=== PATIENT | female | born 2000 | race African-American/Black ===

== ENCOUNTER 2019-08-03 05:40 | Inpatient (IN) ==
[2019-08-03] MEDS ORDERED: BUTORPHANOL 2 MG/ML VIAL IV PRN (06:03)
[2019-08-03] MEDS ORDERED: ONDANSETRON 4 MG/2 ML VIAL IV PRN (06:03)
[2019-08-03] MEDS ORDERED: AMPICILLIN INJ 2,000 MG in SODIUM CHLORIDE 0.9% 100 ML IV ONE (06:04)
[2019-08-03] MEDS: LACTATED RINGERS 1,000 ML IV SCH ×2 (06:15→17:46)
[2019-08-03 07:36] LABS: Basophils % 0.4 % (0.0-0.8); Eosinophils # 0.1 10*3/uL (0.0-0.87); Eosinophils % 1.7 % (0.00-10.9); Hematocrit 31.1 VOL% (35.7-47.0); Hemoglobin 9.9 GM/DL (12.0-16.0); Immature Granulocytes % 1.3 %; Lymphocytes # 1.4 10*3/uL (1.4-4.0); Lymphocytes % 19.1 % (21.3-54.2); Mean Corpuscular HGB Conc 31.8 GM/DL (32-36); Mean Corpuscular Volume 84.1 FL (87-102); Mean Platelet Volume 12.4 FL (9.6-12.0); Monocytes % 12.1 % (1.7-12.7); Neutrophils % 65.4 % (38.7-73.9); Platelet Count 174 T/CUMM (130-400); Red Cell Distribution Width 16.3 % (9.3-17.3); White Blood Count 7.6 T/CUMM (4-12)
[2019-08-03] MEDS: AMPICILLIN INJ 1,000 MG in SODIUM CHLORIDE 0.9% 100 ML IV SCH ×4 (10:51→22:39)
[2019-08-03] MEDS: FLUoxetine 20 MG CAPSULE PO SCH (11:27)
[2019-08-03] MEDS ORDERED: ePHEDrine 50 MG/ML AMP IV PRN (21:51)
[2019-08-03] MEDS ORDERED: FAMOTIDINE 20 MG/2 ML VIAL IV ONE (21:51)
[2019-08-03] MEDS ORDERED: NALOXONE 0.4 MG/ML VIAL IV PRN (21:51)
[2019-08-03] MEDS ORDERED: CITRIC ACID/SODIUM CITRATE 30 ML UDCUP PO ONE (21:51)
[2019-08-03] MEDS ORDERED: CITRIC ACID/SODIUM CITRATE 30 ML UDCUP ONE (21:58)
[2019-08-03] MEDS ORDERED: ePHEDrine 50 MG/ML AMP ONE (21:58)
[2019-08-03] MEDS ORDERED: fentaNYL 2 MCG/ROPIV 0.2% EPID 100 ML EPIDURAL ONE (21:58)
[2019-08-03] MEDS ORDERED: fentaNYL 2 MCG/ROPIV 0.2% EPID 100 ML EPIDURAL SCH (22:00)
[2019-08-04] MEDS ORDERED: OXYTOCIN/LR 20 UNIT/1,000 ML BAG IV SCH (01:00)
[2019-08-04] MEDS: AMPICILLIN INJ 1,000 MG in SODIUM CHLORIDE 0.9% 100 ML IV SCH ×3 (02:30→10:37)
[2019-08-04] MEDS: FLUoxetine 20 MG CAPSULE PO SCH (10:38)
[2019-08-04] MEDS ORDERED: miSOPROStoL 200 MCG TABLET ONE (11:55)
[2019-08-04] MEDS ORDERED: TRANEXAMIC ACID 1,000 MG/10 ML VIAL ONE (11:56)
[2019-08-04] MEDS ORDERED: METHYLERGONOVINE 0.2 MG/1 ML AMP ONE (11:56)
[2019-08-04] MEDS ORDERED: CARBOPROST TROMETHAMINE 250 MCG/ML AMP IM ONE (11:56)
[2019-08-04] MEDS ORDERED: LIDOCAINE 1% 50 ML VIAL ONE (11:57)
[2019-08-04] MEDS ORDERED: SODIUM CHLORIDE 0.9% 0 ML IV ONE (11:57)
[2019-08-04] MEDS ORDERED: METHYLERGONOVINE 0.2 MG/1 ML AMP IM ONE (13:30)
[2019-08-04] MEDS ORDERED: ACETAMINOPHEN 325 MG TABLET PO PRN (13:46)
[2019-08-04] MEDS ORDERED: BISACODYL 10 MG SUPP RECTAL PRN (13:46)
[2019-08-04] MEDS ORDERED: HYDROCORTISONE 2.5% RECTAL CREAM 30 GM TUBE TOP PRN (13:46)
[2019-08-04] MEDS ORDERED: ONDANSETRON 4 MG/2 ML VIAL IV PRN (13:46)
[2019-08-04] MEDS ORDERED: DIPH/TET/ACEL PERT BOOSTER VACCINE 0.5 ML VIAL IM ONE (13:46)
[2019-08-04] MEDS ORDERED: oxyCODONE/ACETAMINOPHEN 5-325 MG TABLET PO PRN (13:46)
[2019-08-04] MEDS ORDERED: WITCH HAZEL PADS 100/JAR TOP PRN (13:46)
[2019-08-04] MEDS ORDERED: RHO(D) IMMUNE GLOBULIN 300 MCG SYRINGE IM ONE (13:46)
[2019-08-04] MEDS ORDERED: MEASLES/MUMPS/RUBELLA VACCINE 0.5 ML VIAL SUBCUT ONE (13:46)
[2019-08-04] MEDS ORDERED: LANOLIN 50% CREAM 0.3 OZ TUBE TOP PRN (13:46)
[2019-08-04] MEDS ORDERED: OXYTOCIN/LR 20 UNIT/1,000 ML BAG IV ONE (13:46)
[2019-08-04] MEDS: IBUPROFEN 800 MG TABLET PO PRN ×2 (14:57→21:30)
[2019-08-04] MEDS: BENZOCAINE 20%/MENTHOL 0.5% SPRAY 56 GM CAN TOP PRN (19:54)
[2019-08-04] MEDS: DOCUSATE SODIUM 100 MG CAPSULE PO SCH (21:28)
[2019-08-05 06:51] LABS: Basophils % 0.2 % (0.0-0.8); Eosinophils # 0.1 10*3/uL (0.0-0.87); Eosinophils % 0.6 % (0.00-10.9); Hematocrit 30.6 VOL% (35.7-47.0); Hemoglobin 9.7 GM/DL (12.0-16.0); Immature Granulocytes Absolute 0.15 #; Lymphocytes # 1.8 10*3/uL (1.4-4.0); Lymphocytes % 11.6 % (21.3-54.2); Mean Corpuscular HGB Conc 31.7 GM/DL (32-36); Mean Corpuscular Volume 82.7 FL (87-102); Mean Platelet Volume 12.3 FL (9.6-12.0); Monocytes % 10.2 % (1.7-12.7); Neutrophils % 76.4 % (38.7-73.9); Platelet Count 191 T/CUMM (130-400); Red Cell Distribution Width 16.3 % (9.3-17.3); White Blood Count 15.5 T/CUMM (4-12)
[2019-08-05] MEDS: FLUoxetine 20 MG CAPSULE PO SCH (09:09)
[2019-08-05] MEDS: DOCUSATE SODIUM 100 MG CAPSULE PO SCH ×2 (09:09→20:42)
[2019-08-05] MEDS: oxyCODONE/ACETAMINOPHEN 5-325 MG TABLET PO PRN (15:41)
[2019-08-05] MEDS: BENZOCAINE 20%/MENTHOL 0.5% SPRAY 56 GM CAN TOP PRN (15:42)
[2019-08-06 07:15] VITALS: BP 126/70
[2019-08-06] MEDS: oxyCODONE/ACETAMINOPHEN 5-325 MG TABLET PO PRN (08:04)
[2019-08-06] MEDS: DOCUSATE SODIUM 100 MG CAPSULE PO SCH (08:05)
[2019-08-06] MEDS: FLUoxetine 20 MG CAPSULE PO SCH (08:05)
== END 2019-08-06 13:30 | disposition home or self-care (01) | DRG 807 ==
LOC: N.LDOUT 05:40 → N.LD 05:43 → N.OB 08-04 16:30
PROVIDERS: ADMIT Obstetrics & Gynecology; ATTEND Obstetrics & Gynecology